=== PATIENT | male | born 1965 | race African-American/Black ===

== ENCOUNTER 2020-03-24 11:57 | Emergency (ER) | payer MEDICAID ==
[~2020-03-24] VITALS: Ht 182.9 cm; Wt 107.0 kg
[~2020-03-24 11:57] MED LIST: TRAMADOL
[2020-03-24 11:58] VITALS: BP 129/84
[2020-03-24] MEDS ORDERED: ACETAMINOPHEN 325MG TABLET PO ONE (14:30)
[2020-03-24] MEDS ORDERED: BACITRACIN ZINC OINT UDPKT TOP ONE (14:45)
[2020-03-24] MEDS ORDERED: TETANUS, DIPHTHERIA, PERTUSSIS VAC/PF 0.5ML (>7YR OLD) IM ONE (14:45)
== END 2020-03-24 15:10 | disposition left against medical advice (07) ==
LOC: ER 12:11
DX: L02.31 Cutaneous abscess of buttock (principal); Z88.0 Allergy status to penicillin; Z86.73 Personal history of transient ischemic attack (TIA), and cerebral infarction without residual deficits
CPT/HCPCS: 99281

== ENCOUNTER 2021-07-05 14:58 | Emergency (ER) | payer MEDICAID ==
[~2021-07-05] VITALS: Ht 185.4 cm; Wt 105.0 kg
[2021-07-05 15:02] VITALS: BP 131/96
[2021-07-05] MEDS ORDERED: KETOROLAC 60MG/2ML VIAL IM STA (15:08)
[2021-07-05] MEDS ORDERED: METOCLOPRAMIDE HCL 10MG/2ML VIAL IM ONE (15:15)
[2021-07-05] MEDS ORDERED: NAPR-681 PO (16:59)
== END 2021-07-05 17:25 | disposition home or self-care (01) ==
LOC: ER 14:58
DX: R51.9 Headache, unspecified (principal); Z88.0 Allergy status to penicillin; Z86.73 Personal history of transient ischemic attack (TIA), and cerebral infarction without residual deficits
CPT/HCPCS: 70450; 96372; 99284; J1885; J2765

== ENCOUNTER 2022-09-19 19:08 | Emergency (ER) | payer MEDICAID, OTHER ==
[~2022-09-19] VITALS: Ht 185.4 cm; Wt 107.0 kg
[~2022-09-19 19:08] MED LIST changes: +NAPR-681 PO
[2022-09-19 20:21] VITALS: BP 145/106
[2022-09-20] MEDS ORDERED: ACETAMINOPHEN 325MG TABLET PO ONE (00:15)
[2022-09-20] MEDS ORDERED: DEXAMETHASONE 10 MG/ML VIAL IV ONE (00:15)
== END 2022-09-20 | disposition left against medical advice (07) ==
LOC: ER 19:08
DX: Z53.21 Procedure and treatment not carried out due to patient leaving prior to being seen by health care provider (principal); G43.909 Migraine, unspecified, not intractable, without status migrainosus; Z88.0 Allergy status to penicillin; Z86.73 Personal history of transient ischemic attack (TIA), and cerebral infarction without residual deficits; Z87.440 Personal history of urinary (tract) infections